=== PATIENT | female | born 1980 | race Caucasian/White ===

== ENCOUNTER 2024-06-07 14:05 | Observation (INO) | payer MEDICAID, OTHER ==
[~2024-06-07] VITALS: Ht 162.6 cm; Wt 66.7 kg
[2024-06-07 14:19] VITALS: BP 144/94; PULSE 150; RESP 18; TEMP 98; O2SAT 100
[2024-06-07] MEDS ORDERED: DILTIAZEM 25 MG/5 ML VIAL IVP ONE (15:10)
[2024-06-07 15:15] LABS: BASOPHILS # (AUTO) 0.1 K/uL (0.00-0.22); BASOPHILS % (AUTO) 0.5 % (0.0-2.0); EOSINOPHILS # (AUTO) 0.3 K/uL (0-0.4); EOSINOPHILS % (AUTO) 3.1 % (0.0-4.0); HEMATOCRIT 46.9 % (36-48); HEMOGLOBIN 16.1 g/dL (12.0-16.0); LYMPHOCYTES % (AUTO) 28.6 % (20.5-51.1); MEAN CORPUSCULAR HEMOGLOBIN 31 pg (27-31); MEAN CORPUSCULAR HGB CONC 34 g/dL (33-37); MEAN CORPUSCULAR VOLUME 90.1 fL (80-94); MONOCYTES # (AUTO) 0.6 K/uL (0.8-1.0); MONOCYTES % (AUTO) 5.8 % (1.7-9.3); NEUTROPHILS # (AUTO) 6.4 K/uL (1.8-7.7); PLATELET COUNT (AUTO) 236 K/uL (140-450); RED CELL DISTRIBUTION WIDTH 13.3 % (11.6-13.7); WHITE BLOOD COUNT (AUTO) 10.3 K/uL (4.8-10.8)
[2024-06-07] MEDS: DILTIAZEM 25 MG/5 ML VIAL IVP ONE (15:15)
[2024-06-07 15:37] LABS: ANION GAP 12.7 (8-16); CALCIUM 9.8 mg/dL (8.5-10.1); CARBON DIOXIDE 29.1 mmol/L (21-32); CREATININE 0.9 mg/dL (0.6-1.3); POTASSIUM 3.8 mmol/L (3.5-5.1)
[2024-06-07 15:52] LABS: ALANINE AMINOTRANSFERASE 31 U/L (12-78); ALBUMIN 3.6 g/dL (3.4-5.0); ALKALINE PHOSPHATASE 64 U/L (50-136); ASPARTATE AMINOTRANSFERASE 15 U/L (15-37); BILIRUBIN,DIRECT 0.1 mg/dL (0.0-0.3); THYROID STIMULATING HORMONE 1.93 uIU/mL (0.34-3.74); TOTAL BILIRUBIN 0.5 mg/dL (0.0-1.0); TOTAL PROTEIN, SERUM 7.3 g/dL (6.4-8.2)
[2024-06-07 15:56] LABS: INR 0.95 (0.8-1.2); PARTIAL THROMBOPLASTIN TIME 22.2 secs (22-35.6)
[2024-06-07] MEDS ORDERED: MORPHINE SULFATE 4 MG/ML SYR IVP PRN (16:40)
[2024-06-07] MEDS ORDERED: ACETAMINOPHEN 325 MG TAB PO PRN (16:40)
[2024-06-07] MEDS ORDERED: POTASSIUM CHLORIDE 10 MEQ TABER PO PRN (16:40)
[2024-06-07] MEDS ORDERED: ONDANSETRON 4 MG/2 ML VIAL IVP PRN (16:40)
[2024-06-07] MEDS ORDERED: KCL 20 MEQ IN 100 mL PREMIX 200 ML IV PRN (16:40)
[2024-06-07] MEDS: METOPROLOL 25 MG TAB PO SCH (16:40)
[2024-06-07] MEDS ORDERED: METOPROLOL 5 MG/5 ML VIAL IVP PRN (16:40)
[2024-06-07] MEDS ORDERED: HYDROcodone/APAP 5/325 MG 1 TAB TAB PO PRN (16:40)
[2024-06-07] MEDS: NACL 0.9% 1,000 ML IV ONE (16:44)
[2024-06-07 17:40] VITALS: PULSE 78; O2SAT 99
[2024-06-07 20:00] VITALS: BP 114/80; PULSE 105; PULSE 67; RESP 18; TEMP 97.1; O2SAT 99
[2024-06-07 23:10] VITALS: PULSE 56
[2024-06-08] VITALS (7 sets, daily range): BP systolic 110–128; BP diastolic 67–79; PULSE 44–155; RESP 18–19; TEMP 96.8–97.4; O2SAT 97–100
[2024-06-08 07:31] LABS: BASOPHILS % (AUTO) 0.4 % (0.0-2.0); EOSINOPHILS # (AUTO) 0.5 K/uL (0-0.4); EOSINOPHILS % (AUTO) 5.6 % (0.0-4.0); HEMOGLOBIN 15.9 g/dL (12.0-16.0); LYMPHOCYTES # (AUTO) 4.1 K/uL (2.5-16.5); LYMPHOCYTES % (AUTO) 45.9 % (20.5-51.1); MEAN CORPUSCULAR HEMOGLOBIN 31 pg (27-31); MEAN CORPUSCULAR HGB CONC 35 g/dL (33-37); MEAN CORPUSCULAR VOLUME 90.2 fL (80-94); MONOCYTES # (AUTO) 0.6 K/uL (0.8-1.0); MONOCYTES % (AUTO) 6.8 % (1.7-9.3); NEUTROPHILS # (AUTO) 3.6 K/uL (1.8-7.7); NEUTROPHILS % (AUTO) 41.3 % (42.2-75.2); PLATELET COUNT (AUTO) 230 K/uL (140-450); WHITE BLOOD COUNT (AUTO) 8.8 K/uL (4.8-10.8)
[2024-06-08 07:57] LABS: ANION GAP 10.5 (8-16); CARBON DIOXIDE 29.3 mmol/L (21-32); CREATININE 0.7 mg/dL (0.6-1.3); POTASSIUM 4.8 mmol/L (3.5-5.1)
[2024-06-08] MEDS: MEDS-TO-BEDS MC SCH (09:00)
[2024-06-08] MEDS ORDERED: METO25TA PO (11:31)
[2024-06-08] MEDS ORDERED: APIX5TAB PO (11:31)
[2024-06-08] MEDS ORDERED: APIXABAN 2.5 MG TAB PO ONE (11:40)
[2024-06-08] MEDS ORDERED: AMIODARONE 200 MG TAB PO ONE (11:40)
[2024-06-08] MEDS: AMIODARONE 200 MG TAB PO SCH (11:48)
[2024-06-08] MEDS ORDERED: APIXABAN 2.5 MG TAB PO SCH (21:00)
== END 2024-06-08 14:10 | disposition home or self-care (01) ==
LOC: MED 14:05 → MTU 16:39
PROVIDERS: ADMIT Student in an Organized Health Care Education/Training Program; ATTEND Student in an Organized Health Care Education/Training Program
DX: I47.10 Supraventricular tachycardia, unspecified (principal); I48.92 Unspecified atrial flutter; E87.1 Hypo-osmolality and hyponatremia; E11.9 Type 2 diabetes mellitus without complications; I10 Essential (primary) hypertension; Z79.899 Other long term (current) drug therapy
CPT/HCPCS: 36415; 71045; 80048; 80076; 82948; 83735; 83880; 84443; 84484; 85025; 85610; 85730; 87081; 93005; 94760; 96361; 96372; 96374; 99285; G0378; J1644; J3490